=== PATIENT | female | born 1980 | race African-American/Black ===

== ENCOUNTER 2019-02-13 06:21 | Emergency (ER) | payer SELFPAY ==
[~2019-02-13] VITALS: Ht 170.2 cm; Wt 156.5 kg
[2019-02-13] MEDS ORDERED: SODIUM CHLORIDE 0.9% 1000ML 1,000 ML IV STA (06:29)
[2019-02-13] MEDS ORDERED: ONDANSETRON HCL INJ 2MG/ML 2ML 2 MG/ML VIAL IV NR (06:30)
[2019-02-13] MEDS ORDERED: FAMOTIDINE 20 MG/2 ML VIAL IV ONE (06:30)
[2019-02-13] MEDS ORDERED: ONDANSETRON HCL 4 MG ORAL DISINTEGRATING TAB ONE (07:25)
[2019-02-13] MEDS ORDERED: ENOXAPARIN SODIUM INJ 100 MG/ML SYR SC ONE (07:25)
--- NOTE | 2019-02-13 07:35 | NUR ---
PT REFUSED FEMORAL STICK FOR LABS, PT EVALUATED FOR EJ'S BY NURSES AND MD. PT WITH MULTIPLE IV STICKS ATTEMPTED BY BAR HOST/HOSTESS NURSE AND MD UNSUCCESSFUL. PT STATES WANTING TO BE STUCK IN HER FOOT STATING SHE HAS A P.E. AND DVT. EXPLAINED WE CANNOT STICK UNDER THOSE CONDITIONS IN FOOT. PT STATES SHE "ALWAYS" GETS CENTRAL LINES. PT WELL VERSED IN MEDICAL TERMINOLOGY. PT STATES SHE HAS NO MONEY AND CANT PAY FOR HER ELIQUIST WHICH SHE SAYS SHE IS SUPPOSE TO BE TAKING. PT STATES SHE HAS CHEST PAIN AND IS WANTING PAIN MEDICATION. PT IS REFUSING FEMORAL STICKS AND REFUSING NAUSEA MEDS AND LOVENOX AT BEDSIDE. PT STATES SHE WANTS TO GO AMA AND "IM GONNA GO TO THE [facility] TO GET A SECOND OPINION." PT LEFT AMBULATORY, STEADY GAIT. SIGNED AMA. [id number].
== END 2019-02-13 07:42 | disposition left against medical advice (07) ==
LOC: FSED 06:21
DX: R07.89 Other chest pain (principal); R11.2 Nausea with vomiting, unspecified; R10.13 Epigastric pain; K21.0 Gastro-esophageal reflux disease with esophagitis; I26.99 Other pulmonary embolism without acute cor pulmonale
CPT/HCPCS: 99284; J7030; Q0162; J1650